=== PATIENT | female | born 1950 | race African-American/Black ===

== ENCOUNTER 2017-04-27 17:34 | Emergency (ER) | payer OTHER, MEDICAID ==
[~2017-04-27] VITALS: Ht 165.1 cm; Wt 53.3 kg
[~2017-04-27 17:34] MED LIST: AMLO10TA PO; BENA20TA4 PO; CEPH250C16 PO; CLON0.2T43 PO; DOCU-67 PO; FAMO-90 PO; LINA5TAB PO; LORA10OD3 PO; SITA100T8 PO
[2017-04-27 17:56] VITALS: BP 145/73
--- NOTE | 2017-04-27 20:12 | NUR ---
PT TAKEN TO BED 6
--- NOTE | 2017-04-27 20:27 | NUR ---
66Y F c/o bilateral ankle pain with subjective edema x 2 wks---denies injury, ambulatory with steady gait PT DENIES ANY N/V/D,SOB,CP AT THE MOMENT. PT IS AAOX4, BREATHING IS UNLABORED AND CLEAT BILAT. hx---cva (no obvious deficits), htn, dm, arthritis, hyperlipidemia, rx---clonidine, benazepril, doc-q-lace, famotidine, amlodipine, tradjenta, claritine
--- NOTE | 2017-04-27 20:40 | NUR ---
X-Ray at bedside.
--- NOTE | 2017-04-27 20:42 | NUR ---
Bree barger in [facility] - 04/27/17 at [address] Paez evaluating patient at bedside.
--- NOTE | 2017-04-27 21:02 | NUR ---
Dr. Paez evaluating patient at bedside.
[2017-04-27 21:03] LABS: BASOPHILS # (AUTO) 0.3 K/uL (0.00-0.22); BASOPHILS % (AUTO) 2.9 % (0.0-2.0); EOSINOPHILS # (AUTO) 0.3 K/uL (0-0.4); EOSINOPHILS % (AUTO) 3.2 % (0.0-4.0); HEMATOCRIT 36.9 % (36-48); HEMOGLOBIN 12.1 g/dL (12.0-16.0); LYMPHOCYTES # (AUTO) 3.5 K/uL (2.5-16.5); LYMPHOCYTES % (AUTO) 36.1 % (20.5-51.1); MEAN CORPUSCULAR HEMOGLOBIN 27 pg (27-31); MEAN CORPUSCULAR HGB CONC 33 g/dL (33-37); MEAN CORPUSCULAR VOLUME 82 fL (80-94); MONOCYTES % (AUTO) 10.4 % (1.7-9.3); NEUTROPHILS # (AUTO) 4.7 K/uL (1.8-7.7); NEUTROPHILS % (AUTO) 47.4 % (42.2-75.2); PLATELET COUNT (AUTO) 216 K/uL (140-450); RED CELL DISTRIBUTION WIDTH 12.8 % (11.6-13.7); WHITE BLOOD COUNT (AUTO) 9.8 K/uL (4.8-10.8)
[2017-04-27 21:18] LABS: ANION GAP 11.3 (8-16); CALCIUM 9.1 mg/dL (8.5-10.1); CARBON DIOXIDE 28.6 mmol/L (21-32); CREATININE 1.1 mg/dL (0.6-1.3); POTASSIUM 3.9 mmol/L (3.5-5.1)
[2017-04-27 21:21] LABS: APPEARANCE,URINE CLEAR (CLEAR); BILIRUBIN,URINE NEGATIVE (NEGATIVE); BLOOD, URINE TRACE-I (NEGATIVE); COLOR,URINE YELLOW (YELLOW); LEUKOCYTE ESTERASE ,URINE TRACE (NEGATIVE); NITRITE, URINE NEGATIVE (NEGATIVE); PH,URINE 5.5 (5.0-9.0); PROTEIN,URINE NEGATIVE (NEGATIVE); UGLUCOSE NEGATIVE (NEGATIVE); UROBILINOGEN,URINE 0.2 EU/dL (0.2 - 1)
[2017-04-27 21:24] LABS: ALBUMIN 4.1 g/dL (3.4-5.0); TOTAL BILIRUBIN 0.2 mg/dL (0.0-1.0); TOTAL PROTEIN, SERUM 8.4 g/dL (6.4-8.2)
[2017-04-27 21:28] LABS: BACTERIA,URINE RARE /HPF (None Seen); RBC,URINE 0-5 /HPF (0-5); SQUAMOUS EPITHELIAL CELL,UR 0-5 /LPF (0-3 (FEW)); WBC,URINE 0-5 /HPF (0-5)
--- NOTE | 2017-04-27 22:11 | NUR ---
Patient discharged with v/s stable. Written and verbal after care instructions given and explained. Patient verbalized understanding. Ambulatory with steady gait. All questions addressed prior to discharge. Advised to follow up with PMD.
[2017-04-27 22:18] VITALS: BP 119/72
== END 2017-04-27 22:17 | disposition home or self-care (01) ==
LOC: MED 17:34
DX: R60.9 Edema, unspecified (principal); E86.0 Dehydration; E11.9 Type 2 diabetes mellitus without complications; I10 Essential (primary) hypertension; E78.5 Hyperlipidemia, unspecified; M19.90 Unspecified osteoarthritis, unspecified site; Z96.641 Presence of right artificial hip joint; Z85.22 Personal history of malignant neoplasm of nasal cavities, middle ear, and accessory sinuses; Z86.73 Personal history of transient ischemic attack (TIA), and cerebral infarction without residual deficits; Z88.0 Allergy status to penicillin; Z88.1 Allergy status to other antibiotic agents
CPT/HCPCS: 36415; 71010; 80053; 81001; 83880; 84443; 84484; 85025; 93005; 99285; Q0092

== ENCOUNTER 2017-12-20 22:21 | Emergency (ER) | payer OTHER, MEDICAID ==
[~2017-12-20] VITALS: Ht 170.2 cm; Wt 54.4 kg
[~2017-12-20 22:21] MED LIST changes: -CEPH250C16 PO; +DOCU-299 PO; -DOCU-67 PO; -SITA100T8 PO
[2017-12-20 22:35] VITALS: BP 137/88
--- NOTE | 2017-12-20 22:40 | NUR ---
Pt presents to ED with 3+ lip and right cheek edema. Pt states no SOB or dyspnea. Lungs are clear in all lobes to auscletation. Pt sates she woke up at 12pm on 12/20/17 with the edema in which it has become worse over the past 11 hrs. VSS. ER MD aware. Continue to monitor.
--- NOTE | 2017-12-20 22:40 | NUR ---
PT.AMBULATED TO ER BED 11, MADE AWARE
--- NOTE | 2017-12-20 22:43 | NUR ---
Patient being evaluated by at bedside.
[2017-12-20] MEDS: NACL 0.9% 1,000 ML IV ONE (23:00)
[2017-12-20] MEDS: methylPREDNISolone SS 125 MG/2 ML VIAL IVP ONE (23:01)
[2017-12-20] MEDS: diphenhydrAMINE 50 MG/ML VIAL IVP ONE (23:02)
[2017-12-21 02:00] VITALS: BP 137/88
--- NOTE | 2017-12-21 02:00 | NUR ---
Patient discharged with v/s stable without SOB or dyspnea. Written and verbal after care instructions given and explained. Patient alert, oriented and verbalized understanding of instructions. Ambulatory with steady gait. All questions addressed prior to discharge. ID band removed. Patient advised to follow up with PMD. Rx of Hydralazine, Prednisone, and Benadryl given. Patient educated on indication of medication including possible reaction and side effects. Opportunity to ask questions provided and answered.
== END 2017-12-21 02:00 | disposition home or self-care (01) ==
LOC: MED 22:21
DX: T78.3XXA Angioneurotic edema, initial encounter (principal); T88.7XXA Unspecified adverse effect of drug or medicament, initial encounter; T46.4X5A Adverse effect of angiotensin-converting-enzyme inhibitors, initial encounter; Z86.73 Personal history of transient ischemic attack (TIA), and cerebral infarction without residual deficits; E11.9 Type 2 diabetes mellitus without complications; I10 Essential (primary) hypertension; Z85.22 Personal history of malignant neoplasm of nasal cavities, middle ear, and accessory sinuses; Z88.0 Allergy status to penicillin; Z88.1 Allergy status to other antibiotic agents; Z79.899 Other long term (current) drug therapy
CPT/HCPCS: 82948; 96361; 96374; 96375; 99285; J1200; J2930

== ENCOUNTER 2017-12-21 17:49 | Emergency (ER) | payer OTHER, MEDICAID ==
[~2017-12-21] VITALS: Ht 165.1 cm; Wt 54.6 kg
[2017-12-21 18:41] VITALS: BP 146/77
--- NOTE | 2017-12-21 19:00 | NUR ---
PATIENT PRESENTS TO ED WITH C/O her blood sugar has been over 300 all day today, denies polyuria, polydipsia, or polyphagia seen yesterday in our er for ANGIOEDEMA, pt had been on benazepril, hx---Hx Cancer (Maxillary sinus cancer), Hx Cerebrovascular Accide (x2), Hx Diabetes, Hx Hypertension, DENIES PAIN, VSS; ER MD MADE AWARE OF PT STATUS.
--- NOTE | 2017-12-21 20:11 | NUR ---
Bree barger in ED - 12/21/17 at [address] Rose evaluating patient.
--- NOTE | 2017-12-21 20:11 | NUR ---
Patient being evaluated by physician at bedside.
[2017-12-21 20:27] VITALS: BP 136/81
== END 2017-12-21 20:26 | disposition home or self-care (01) ==
LOC: MED 17:49
DX: E11.65 Type 2 diabetes mellitus with hyperglycemia (principal); Z86.73 Personal history of transient ischemic attack (TIA), and cerebral infarction without residual deficits; E11.9 Type 2 diabetes mellitus without complications; I10 Essential (primary) hypertension; Z79.899 Other long term (current) drug therapy; Z88.0 Allergy status to penicillin
CPT/HCPCS: 82948; 99283

== ENCOUNTER 2020-07-04 14:29 | Emergency (ER) | payer MEDICAID, OTHER ==
[~2020-07-04] VITALS: Ht 170.2 cm; Wt 54.4 kg
[~2020-07-04 14:29] MED LIST changes: +BENA20TA11 PO; -BENA20TA4 PO
[2020-07-04 14:33] VITALS: BP 145/75
--- NOTE | 2020-07-04 14:40 | NUR ---
PT C/O BLOATING/CONSTIPATION X2 DAYS, DENIES ABD PAIN, N/V. PATIENT IS TAKING Polyethylene glycol PRESCRIBED BY HER MD. LAST BM WAS YESTERDAY, BUT PATIENT STATES IT WAS PEBBLE-LIKE.
[2020-07-04] MEDS ORDERED: NACL 0.9% 1,000 ML IV SCH (14:41)
--- NOTE | 2020-07-04 14:51 | NUR ---
PER DR GOULD ALL ORDERS CANCELLED, PRIMARY RN NOTIFIED.
[2020-07-04 14:59] VITALS: BP 135/71
--- NOTE | 2020-07-04 14:59 | NUR ---
Patient discharged with v/s stable. Written and verbal after care instructions given and explained. Patient alert, oriented and verbalized understanding of instructions. Ambulatory with steady gait. All questions addressed prior to discharge. ID band removed. Patient advised to follow up with PMD. Rx of MiraLax and Magnesuym Citrate given. Patient educated on indication of medication including possible reaction and side effects. Opportunity to ask questions provided and answered.
== END 2020-07-04 14:59 | disposition home or self-care (01) ==
LOC: MED 14:29
DX: K59.00 Constipation, unspecified (principal); E11.9 Type 2 diabetes mellitus without complications; I10 Essential (primary) hypertension; Z79.899 Other long term (current) drug therapy; Z88.0 Allergy status to penicillin; Z88.1 Allergy status to other antibiotic agents; Z86.73 Personal history of transient ischemic attack (TIA), and cerebral infarction without residual deficits; Z85.22 Personal history of malignant neoplasm of nasal cavities, middle ear, and accessory sinuses
CPT/HCPCS: 99282

== ENCOUNTER 2020-10-10 13:39 | Emergency (ER) | payer OTHER, MEDICAID ==
[~2020-10-10] VITALS: Ht 162.6 cm; Wt 54.4 kg
[2020-10-10 13:47] VITALS: BP 139/74
--- NOTE | 2020-10-10 14:42 | NUR ---
PT UNABLE TO URINATE AT THIS TIME
--- NOTE | 2020-10-10 14:42 | NUR ---
PT TOSHIAID SWABBED AND WALKED TO LAB
--- NOTE | 2020-10-10 14:43 | NUR ---
70 Y/O FEMALE PRESENTS WITH GEN WEAKNESS SINCE MIGUELINA, PT DENIES ANY SOB OR BODY ACHES, PT STATES "I JUST FEEL WEAK". AAOX4. AMBULATORY WITH STEADY GAIT. DENIES N/V/D. CAP REFILL <3. RESP EVEN AND UNLABORED.
[2020-10-10 15:07] LABS: BASOPHILS % (AUTO) 0.2 % (0.0-2.0); EOSINOPHILS % (AUTO) 0.1 % (0.0-4.0); HEMATOCRIT 32.5 % (36-48); HEMOGLOBIN 10.6 g/dL (12.0-16.0); LYMPHOCYTES # (AUTO) 0.9 K/uL (2.5-16.5); LYMPHOCYTES % (AUTO) 10.2 % (20.5-51.1); MEAN CORPUSCULAR HEMOGLOBIN 26 pg (27-31); MEAN CORPUSCULAR HGB CONC 33 g/dL (33-37); MEAN CORPUSCULAR VOLUME 81.1 fL (80-94); MONOCYTES % (AUTO) 11.6 % (1.7-9.3); NEUTROPHILS # (AUTO) 6.8 K/uL (1.8-7.7); NEUTROPHILS % (AUTO) 77.9 % (42.2-75.2); PLATELET COUNT (AUTO) 297 K/uL (140-450); RED BLOOD CELL COUNT(AUTO) 4.02 MIL/uL (4.20-5.40); RED CELL DISTRIBUTION WIDTH 13.7 % (11.6-13.7); WHITE BLOOD COUNT (AUTO) 8.7 K/uL (4.8-10.8)
[2020-10-10 15:28] LABS: ALBUMIN 3.5 g/dL (3.4-5.0); CARBON DIOXIDE 25.4 mmol/L (21-32); CREATININE 1.1 mg/dL (0.6-1.3); POTASSIUM 4.4 mmol/L (3.5-5.1); TOTAL BILIRUBIN 0.4 mg/dL (0.0-1.0)
--- NOTE | 2020-10-10 15:45 | NUR ---
Received critical lab, COVID +. Dr. Higgins made aware.
[2020-10-10 16:01] VITALS: BP 139/74
== END 2020-10-10 16:01 | disposition home or self-care (01) ==
LOC: MED 13:39
DX: U07.1 COVID-19 (principal)
CPT/HCPCS: 36415; 71045; 80053; 85025; 93005; 99285

== ENCOUNTER 2021-02-13 11:16 | Emergency (ER) | payer OTHER, MEDICAID ==
[~2021-02-13] VITALS: Ht 170.2 cm; Wt 48.1 kg
[~2021-02-13 11:16] MED LIST changes: +CLON-1170 PO; -CLON0.2T43 PO
[2021-02-13 11:26] VITALS: BP 167/93
--- NOTE | 2021-02-13 11:32 | NUR ---
Patient ambulated to bed 04 with steady/even gait.
--- NOTE | 2021-02-13 11:35 | NUR ---
RN is evaluating patient at bedside.
--- NOTE | 2021-02-13 12:02 | NUR ---
PT STATES THAT SHE HAD LEFT EYE SURGERY IN THE PAST, PUPIL IS ASYMETRICAL LEFT SIDE NORMAL FOR PT
--- NOTE | 2021-02-13 12:56 | NUR ---
Dr. Hinson is evaluating the patient at bedside.
[2021-02-13 13:12] VITALS: BP 157/76
== END 2021-02-13 13:00 | disposition home or self-care (01) ==
LOC: MED 11:16
DX: T46.5X1A Poisoning by other antihypertensive drugs, accidental (unintentional), initial encounter (principal); R20.2 Paresthesia of skin; I10 Essential (primary) hypertension; Y92.89 Other specified places as the place of occurrence of the external cause
CPT/HCPCS: 99281

== ENCOUNTER 2021-06-10 13:58 | Emergency (ER) | payer OTHER, MEDICAID ==
[~2021-06-10] VITALS: Ht 170.2 cm; Wt 48.1 kg
[2021-06-10 14:12] VITALS: BP 141/66
--- NOTE | 2021-06-10 14:24 | NUR ---
Patient ambulated to bed 12
--- NOTE | 2021-06-10 14:30 | NUR ---
Patient is a 70 y/o female c/o constipation x1 week, last bowel movement on 06/08/21. Per patient, has been taking OTC psyllium, magnesium, and OTC cascara supplement. Patient denies CP, SOB, abdominal pain, lightheaded or dizziness, dysuria, fever, chills, URI symptoms, or recent travel. Rx: amlodipine, clonidine PMH: HTN, DM, RIGHT HIP SURGERY Allergies: PCN, tetracycline
--- NOTE | 2021-06-10 15:54 | NUR ---
Patient taken to CT via wheelchair by plant health care technician.
--- NOTE | 2021-06-10 16:09 | NUR ---
Patient brought back from CT by tech via wheelchair.
--- NOTE | 2021-06-10 17:04 | NUR ---
Patient ambulated to the restroom with a steady gait.
--- NOTE | 2021-06-10 17:18 | NUR ---
Dr. Marks at the bedside re-evaluating patient.
[2021-06-10] MEDS ORDERED: MIRABULK PO (17:41)
[2021-06-10 17:51] VITALS: BP 141/66
--- NOTE | 2021-06-10 17:51 | NUR ---
Patient discharged with v/s stable. Written and verbal after care instructions given and explained. Patient alert, oriented and verbalized understanding of instructions. Ambulatory with steady gait. All questions addressed prior to discharge. ID band removed. Patient advised to follow up with PMD. Rx of polyethylene glycol given. Patient educated on indication of medication including possible reaction and side effects. Opportunity to ask questions provided and answered.
== END 2021-06-10 17:51 | disposition home or self-care (01) ==
LOC: MED 13:58
DX: R14.0 Abdominal distension (gaseous) (principal); K59.00 Constipation, unspecified; E11.9 Type 2 diabetes mellitus without complications; I10 Essential (primary) hypertension; Z88.0 Allergy status to penicillin; Z88.1 Allergy status to other antibiotic agents; Z79.899 Other long term (current) drug therapy; Z85.22 Personal history of malignant neoplasm of nasal cavities, middle ear, and accessory sinuses
CPT/HCPCS: 99284

== ENCOUNTER 2021-11-27 12:15 | Emergency (ER) | payer OTHER, MEDICAID ==
[~2021-11-27] VITALS: Ht 170.2 cm; Wt 46.5 kg
[~2021-11-27 12:15] MED LIST changes: -BENA20TA11 PO; +BENA20TA89 PO; +MIRABULK PO
[2021-11-27 12:28] VITALS: BP 140/74
--- NOTE | 2021-11-27 12:38 | NUR ---
PT AMBULATED TO ER BED 6 WITH A STEADY GAIT.
--- NOTE | 2021-11-27 12:40 | NUR ---
71 y/o Female BIB family for a c/o constipation and bloating x 2 days. Abd is soft/non-tender. +BS x4. passing flatus at this time. Pt states that she takes [place] for her chronic pain. Denies N/V/D/CP. Pmhx: CVA, Maxillary sinus CA, DM, HTN Home meds: Citric mag, miralax, [id number], tradjanta 5mg, amlodipine 10mg. clonidine 0.2, omeprazole 20 mg. Allergies: PCN, tetracycline
[2021-11-27] MEDS: SENNA 8.6 MG TAB PO SCH (13:05)
[2021-11-27] MEDS: DOCUSATE SODIUM 100 MG GELCAP PO SCH (13:05)
--- NOTE | 2021-11-27 13:14 | NUR ---
Radiology at bedside for XRAY
[2021-11-27] MEDS ORDERED: DOCU1TAB73 PO (13:31)
--- NOTE | 2021-11-27 13:45 | NUR ---
Patient discharged with v/s stable. Written and verbal after care instructions given about constipation and explained. Patient alert, oriented and verbalized understanding of instructions. Ambulatory with steady gait. All questions addressed prior to discharge. ID band removed. Patient advised to follow up with PMD. Rx of sennosides/docusate sodium given. Opportunity to ask questions provided and answered.
[2021-11-27 13:51] VITALS: BP 126/80
--- NOTE | 2021-11-27 14:03 | NUR ---
The patient's care was reviewed and supervised by Yamileth Akhtar RN.
== END 2021-11-27 13:49 | disposition home or self-care (01) ==
LOC: MED 12:15
DX: K59.00 Constipation, unspecified (principal); E11.9 Type 2 diabetes mellitus without complications; I10 Essential (primary) hypertension; Z86.73 Personal history of transient ischemic attack (TIA), and cerebral infarction without residual deficits; Z88.0 Allergy status to penicillin; Z88.1 Allergy status to other antibiotic agents; Z79.899 Other long term (current) drug therapy
CPT/HCPCS: 74018; 82948; 99284; Q0092

== ENCOUNTER 2022-02-05 15:25 | Emergency (ER) | payer OTHER, MEDICAID ==
[~2022-02-05] VITALS: Ht 170.2 cm; Wt 46.9 kg
[~2022-02-05 15:25] MED LIST changes: +DOCU1TAB73 PO
[2022-02-05 15:39] VITALS: BP 137/60
[2022-02-05] MEDS ORDERED: MIRABULK PO (16:37)
[2022-02-05] MEDS ORDERED: CIPR500T4 PO (16:37)
--- NOTE | 2022-02-05 16:50 | NUR ---
no nursing interventions done at this time
--- NOTE | 2022-02-05 16:52 | NUR ---
Patient discharged with v/s stable. Written and verbal after care instructions given and explained. Patient alert, oriented and verbalized understanding of instructions. Ambulatory with steady gait. All questions addressed prior to discharge. ID band removed. Patient advised to follow up with PMD. Rx of CIPROFLOXACIN AND MIRALAX given. Opportunity to ask questions provided and answered.
[2022-02-05 16:53] VITALS: BP 137/60
--- NOTE | 2022-02-05 16:55 | NUR ---
The patient's care was reviewed and supervised by Bessy [place], RN, RN.
== END 2022-02-05 16:53 | disposition home or self-care (01) ==
LOC: MED 15:25
DX: N39.0 Urinary tract infection, site not specified (principal); K59.00 Constipation, unspecified; E11.9 Type 2 diabetes mellitus without complications; I10 Essential (primary) hypertension; Z79.899 Other long term (current) drug therapy; Z86.73 Personal history of transient ischemic attack (TIA), and cerebral infarction without residual deficits; Z85.22 Personal history of malignant neoplasm of nasal cavities, middle ear, and accessory sinuses; Z88.0 Allergy status to penicillin; Z88.1 Allergy status to other antibiotic agents
CPT/HCPCS: 81002; 99283

== ENCOUNTER 2022-05-08 12:23 | Emergency (ER) | payer OTHER, MEDICAID ==
[~2022-05-08] VITALS: Ht 170.2 cm; Wt 49.9 kg
[~2022-05-08 12:23] MED LIST changes: +CIPR500T4 PO
[2022-05-08 12:28] VITALS: BP 170/72
--- NOTE | 2022-05-08 12:33 | NUR ---
PT W/C ASSISTED TO ER BED 1
--- NOTE | 2022-05-08 12:37 | NUR ---
PT WC ASSISTED TO BATHROOM
[2022-05-08] MEDS ORDERED: NACL 0.9% 1,000 ML IV ONE (13:40)
[2022-05-08 14:08] LABS: BASOPHILS % (AUTO) 0.9 % (0.0-2.0); EOSINOPHILS % (AUTO) 0.4 % (0.0-4.0); HEMOGLOBIN 11.5 g/dL (12.0-16.0); LYMPHOCYTES # (AUTO) 0.9 K/uL (2.5-16.5); LYMPHOCYTES % (AUTO) 20.4 % (20.5-51.1); MEAN CORPUSCULAR HEMOGLOBIN 27 pg (27-31); MEAN CORPUSCULAR HGB CONC 34 g/dL (33-37); MEAN CORPUSCULAR VOLUME 80.3 fL (80-94); MONOCYTES # (AUTO) 0.4 K/uL (0.8-1.0); MONOCYTES % (AUTO) 8.6 % (1.7-9.3); NEUTROPHILS # (AUTO) 3.1 K/uL (1.8-7.7); NEUTROPHILS % (AUTO) 69.7 % (42.2-75.2); PLATELET COUNT (AUTO) 233 K/uL (140-450); RED BLOOD CELL COUNT(AUTO) 4.24 MIL/uL (4.20-5.40); RED CELL DISTRIBUTION WIDTH 13.3 % (11.6-13.7); WHITE BLOOD COUNT (AUTO) 4.5 K/uL (4.8-10.8)
[2022-05-08 14:21] LABS: ALBUMIN 4.1 g/dL (3.4-5.0); ANION GAP 12.3 (8-16); ASPARTATE AMINOTRANSFERASE 20 U/L (15-37); CARBON DIOXIDE 26.4 mmol/L (21-32); CHLORIDE 103 mmol/L (98-107); CREATININE 0.9 mg/dL (0.6-1.3); GLUCOSE 167 mg/dL (74-106); POTASSIUM 3.7 mmol/L (3.5-5.1); SODIUM SERUM 138 mmol/L (136-145); TOTAL BILIRUBIN 0.2 mg/dL (0.0-1.0); UREA NITROGEN, BLOOD 14 mg/dL (7-18)
--- NOTE | 2022-05-08 14:21 | NUR ---
XRAY AT BEDSIDE
--- NOTE | 2022-05-08 14:21 | NUR ---
22G IV CATH PLACED IN L AC. LABS OBTAINED AND SENT TO LAB
--- NOTE | 2022-05-08 14:37 | NUR ---
71YR OLD FEMALE BIB SELF C/O DIZZINESS AND CONSTIPATION X1DAY. DENIES CP OR SOB. 0/10 PAIN. PT STATES FEELING DIZZY WHILE IN THE RESTROOM TODAY. HAS BEEN CONSTIPATED FOR 2 DAYS. DENIES ABD PAIN . PT ON BEDSIDE MONITOR. HOB ELEVATED. SIDE RAILS UPX2. BED AT LOWEST POSITION. PT IS A&OX4. SKIN INTACT. RESP EVEN AND UNLABORED. PCN DM HTN STROKE
--- NOTE | 2022-05-08 14:41 | NUR ---
BEDSIDE COMMONDE AT BED SIDE.
[2022-05-08 16:50] LABS: APPEARANCE,URINE CLEAR (CLEAR); BILIRUBIN,URINE NEGATIVE (NEGATIVE); BLOOD, URINE TRACE-I (NEGATIVE); COLOR,URINE YELLOW (YELLOW); LEUKOCYTE ESTERASE ,URINE NEGATIVE (NEGATIVE); NITRITE, URINE NEGATIVE (NEGATIVE); PH,URINE 7.5 (5.0-9.0); UGLUCOSE NEGATIVE (NEGATIVE)
[2022-05-08] MEDS ORDERED: ONDA-188 PO (17:26)
[2022-05-08 17:27] LABS: RBC,URINE NONE SEEN /HPF (0-5); WBC,URINE NONE SEEN /HPF (0-5); YEAST,URINE None Seen /HPF (None Seen)
[2022-05-08 17:28] LABS: TRICHOMONAS,URINE None Seen /HPF (None Seen); URIC ACID CRYSTALS,URINE 0-10 /HPF (None Seen)
[2022-05-08 17:52] VITALS: BP 161/68
== END 2022-05-08 17:41 | disposition home or self-care (01) ==
LOC: MED 12:23
DX: R53.1 Weakness (principal); R42 Dizziness and giddiness; E11.9 Type 2 diabetes mellitus without complications; I10 Essential (primary) hypertension; Z85.22 Personal history of malignant neoplasm of nasal cavities, middle ear, and accessory sinuses; Z86.73 Personal history of transient ischemic attack (TIA), and cerebral infarction without residual deficits; Z88.0 Allergy status to penicillin; Z88.1 Allergy status to other antibiotic agents; Z79.899 Other long term (current) drug therapy
CPT/HCPCS: 36415; 71045; 80053; 81001; 83880; 84484; 85025; 93005; 96360; 99285; J7030

== ENCOUNTER 2023-03-30 12:58 | Emergency (ER) | payer OTHER, MEDICAID ==
[~2023-03-30] VITALS: Ht 165.1 cm; Wt 56.2 kg
[~2023-03-30 12:58] MED LIST changes: +ONDA-188 PO
[2023-03-30 13:10] VITALS: BP 142/90; PULSE 72; RESP 17; TEMP 97.4; O2SAT 96
[2023-03-30] MEDS ORDERED: SODIUM PHOSPHATE 118 ML ENEM RC ONE (14:20)
[2023-03-30] MEDS ORDERED: MIRABULK PO (16:30)
== END 2023-03-30 17:24 | disposition home or self-care (01) ==
LOC: MED 12:58
DX: K59.00 Constipation, unspecified (principal); E11.9 Type 2 diabetes mellitus without complications; I10 Essential (primary) hypertension; E78.00 Pure hypercholesterolemia, unspecified; Z86.73 Personal history of transient ischemic attack (TIA), and cerebral infarction without residual deficits; Z85.22 Personal history of malignant neoplasm of nasal cavities, middle ear, and accessory sinuses; Z79.899 Other long term (current) drug therapy; Z79.2 Long term (current) use of antibiotics; Z88.0 Allergy status to penicillin; Z88.1 Allergy status to other antibiotic agents
CPT/HCPCS: 74022; 99284

== ENCOUNTER 2023-04-12 12:28 | Emergency (ER) | payer OTHER, MEDICAID ==
[~2023-04-12] VITALS: Ht 167.6 cm; Wt 68.0 kg
[2023-04-12 12:47] VITALS: BP 150/73; PULSE 93; RESP 20; TEMP 97; O2SAT 98
== END 2023-04-12 13:43 | disposition home or self-care (01) ==
LOC: MED 12:28
DX: R19.7 Diarrhea, unspecified (principal); I10 Essential (primary) hypertension; E11.9 Type 2 diabetes mellitus without complications; Z86.73 Personal history of transient ischemic attack (TIA), and cerebral infarction without residual deficits; Z79.4 Long term (current) use of insulin; Z79.899 Other long term (current) drug therapy; Z88.0 Allergy status to penicillin; Z88.8 Allergy status to other drugs, medicaments and biological substances
CPT/HCPCS: 99282

== ENCOUNTER 2023-04-21 20:25 | Emergency (ER) | payer OTHER, MEDICAID ==
[~2023-04-21] VITALS: Ht 170.2 cm; Wt 40.8 kg
[2023-04-21 20:49] VITALS: BP 140/70; PULSE 80; RESP 16; TEMP 97.8; O2SAT 100
--- NOTE | 2023-04-21 20:57 | NUR ---
TO LOBBY FOLLOWING TRIAGE AFTER OBTAINING UA
--- NOTE | 2023-04-21 21:09 | NUR ---
URINE GIVEN TO LAB.
[2023-04-21 21:27] LABS: BASOPHILS # (AUTO) 0.1 K/uL (0.00-0.22); EOSINOPHILS # (AUTO) 0.1 K/uL (0-0.4); EOSINOPHILS % (AUTO) 0.9 % (0.0-4.0); HEMATOCRIT 31.9 % (36-48); HEMOGLOBIN 11.1 g/dL (12.0-16.0); LYMPHOCYTES % (AUTO) 33.3 % (20.5-51.1); MEAN CORPUSCULAR HEMOGLOBIN 28 pg (27-31); MEAN CORPUSCULAR HGB CONC 35 g/dL (33-37); MEAN CORPUSCULAR VOLUME 79.3 fL (80-94); MONOCYTES # (AUTO) 0.8 K/uL (0.8-1.0); MONOCYTES % (AUTO) 13.7 % (1.7-9.3); NEUTROPHILS # (AUTO) 3.1 K/uL (1.8-7.7); NEUTROPHILS % (AUTO) 51.1 % (42.2-75.2); PLATELET COUNT (AUTO) 220 K/uL (140-450); RED BLOOD CELL COUNT(AUTO) 4.02 MIL/uL (4.20-5.40); RED CELL DISTRIBUTION WIDTH 13.1 % (11.6-13.7)
[2023-04-21 21:59] LABS: ALBUMIN 4.3 g/dL (3.4-5.0); ANION GAP 13.9 (8-16); ASPARTATE AMINOTRANSFERASE 25 U/L (15-37); CHLORIDE 95 mmol/L (98-107); CREATININE 0.9 mg/dL (0.6-1.3); GLUCOSE 122 mg/dL (74-106); LIPASE 13 U/L (73-393); SODIUM SERUM 130 mmol/L (136-145); TOTAL BILIRUBIN 0.4 mg/dL (0.0-1.0); UREA NITROGEN, BLOOD 8 mg/dL (7-18)
[2023-04-21 22:04] LABS: POTASSIUM 2.9 mmol/L (3.5-5.1)
--- NOTE | 2023-04-21 22:04 | NUR ---
pt to bed 09
[2023-04-21] MEDS ORDERED: NACL 0.9% 1,000 ML IV ONE (22:10)
[2023-04-21] MEDS ORDERED: POTASSIUM CHLORIDE 10 MEQ TABER PO ONE ×2 (22:10→22:41)
[2023-04-21] MEDS ORDERED: KCL 20 MEQ IN 100 mL PREMIX 200 ML IV ONE (22:10)
[2023-04-21] MEDS ORDERED: POLYETHYLENE GLYCOL 17 GM/PKT PO ONE (22:40)
[2023-04-21] MEDS ORDERED: DOCUSATE SODIUM 100 MG GELCAP PO SCH (22:40)
[2023-04-21] MEDS ORDERED: SODIUM PHOSPHATE 118 ML ENEM RC ONE (22:40)
[2023-04-21] MEDS ORDERED: CRUSHER, PILL MC ONE (22:44)
--- NOTE | 2023-04-22 | NUR ---
Pt assisted to commode and had medium bowel movement. ERMD notified
--- NOTE | 2023-04-22 00:40 | NUR ---
Per pt, c/o feeling is unable to empty bowels. Denies pain at this time. ERMD was made aware and placed order for CT.
--- NOTE | 2023-04-22 00:42 | NUR ---
Pt was taken to CT
--- NOTE | 2023-04-22 01:40 | NUR ---
Pt was assisted to commmode and urinated.
--- NOTE | 2023-04-22 03:25 | NUR ---
Pt awake and resting comfortably at this time. No c/o pain or discomfort.
[2023-04-22] MEDS ORDERED: NA P135N RC (04:41)
[2023-04-22] MEDS ORDERED: POTA10TA70 PO (04:41)
[2023-04-22] MEDS ORDERED: PSYL0.4C2 PO (04:41)
[2023-04-22] MEDS ORDERED: DOCU-299 PO (04:41)
[2023-04-22 05:30] VITALS: BP 150/77; PULSE 86; RESP 16; TEMP 97.8; O2SAT 100
--- NOTE | 2023-04-22 05:33 | NUR ---
Patient discharged. Written and verbal after care instructions given and explained. New rx colace, fleet enema, potassium chloride, and metamucil. Patient verbalized understanding. Ambulatory. All questions addressed prior to discharge. Advised to follow up with PMD.
== END 2023-04-22 05:30 | disposition home or self-care (01) ==
LOC: MED 20:25
DX: K59.00 Constipation, unspecified (principal); E87.6 Hypokalemia; D50.9 Iron deficiency anemia, unspecified; E86.0 Dehydration; E11.9 Type 2 diabetes mellitus without complications; I10 Essential (primary) hypertension; Z85.22 Personal history of malignant neoplasm of nasal cavities, middle ear, and accessory sinuses; Z86.73 Personal history of transient ischemic attack (TIA), and cerebral infarction without residual deficits; Z88.0 Allergy status to penicillin; Z88.1 Allergy status to other antibiotic agents; Z79.899 Other long term (current) drug therapy
CPT/HCPCS: 36415; 74022; 74176; 80053; 83690; 85025; 96365; 96366; 99285; J3480; J7030; Q0092

== ENCOUNTER 2023-09-12 00:05 | Emergency (ER) | payer OTHER, MEDICAID ==
[~2023-09-12] VITALS: Ht 170.2 cm; Wt 44.9 kg
[~2023-09-12 00:05] MED LIST changes: +NA P135N RC; +POTA10TA70 PO; +PSYL0.4C2 PO
[2023-09-12 00:38] VITALS: BP 147/67; PULSE 82; RESP 20; TEMP 98; O2SAT 98
[2023-09-12] MEDS ORDERED: KETOROLAC 60 MG/2 ML VIAL IM ONE (01:30)
[2023-09-12] MEDS ORDERED: IBUP-1842 PO (03:24)
[2023-09-12 05:51] LABS: BASOPHILS # (AUTO) 0.1 K/uL (0.00-0.22); BASOPHILS % (AUTO) 0.8 % (0.0-2.0); EOSINOPHILS # (AUTO) 0.1 K/uL (0-0.4); EOSINOPHILS % (AUTO) 0.9 % (0.0-4.0); HEMOGLOBIN 11.8 g/dL (12.0-16.0); LYMPHOCYTES # (AUTO) 2.4 K/uL (2.5-16.5); LYMPHOCYTES % (AUTO) 38.9 % (20.5-51.1); MEAN CORPUSCULAR HEMOGLOBIN 28 pg (27-31); MEAN CORPUSCULAR HGB CONC 34 g/dL (33-37); MEAN CORPUSCULAR VOLUME 82.2 fL (80-94); MONOCYTES # (AUTO) 0.7 K/uL (0.8-1.0); MONOCYTES % (AUTO) 10.6 % (1.7-9.3); NEUTROPHILS % (AUTO) 48.8 % (42.2-75.2); PLATELET COUNT (AUTO) 230 K/uL (140-450); RED BLOOD CELL COUNT(AUTO) 4.25 MIL/uL (4.20-5.40); RED CELL DISTRIBUTION WIDTH 13.5 % (11.6-13.7); WHITE BLOOD COUNT (AUTO) 6.1 K/uL (4.8-10.8)
[2023-09-12 06:12] LABS: ALANINE AMINOTRANSFERASE 29 U/L (12-78); ALBUMIN 4.3 g/dL (3.4-5.0); ALKALINE PHOSPHATASE 86 U/L (50-136); ANION GAP 11.8 (8-16); ASPARTATE AMINOTRANSFERASE 20 U/L (15-37); CARBON DIOXIDE 28.8 mmol/L (21-32); CHLORIDE 104 mmol/L (98-107); CREATININE 0.9 mg/dL (0.6-1.3); GLUCOSE 160 mg/dL (74-106); POTASSIUM 3.6 mmol/L (3.5-5.1); SODIUM SERUM 141 mmol/L (136-145); TOTAL BILIRUBIN 0.3 mg/dL (0.0-1.0); UREA NITROGEN, BLOOD 14 mg/dL (7-18)
[2023-09-12 06:53] VITALS: BP 151/67; PULSE 81; RESP 22; TEMP 98.3; O2SAT 99
== END 2023-09-12 06:53 | disposition short-term general hospital (02) ==
LOC: MED 00:05
DX: I61.9 Nontraumatic intracerebral hemorrhage, unspecified (principal); E11.9 Type 2 diabetes mellitus without complications; I10 Essential (primary) hypertension; Z86.73 Personal history of transient ischemic attack (TIA), and cerebral infarction without residual deficits; Z98.890 Other specified postprocedural states; Z79.899 Other long term (current) drug therapy; Z79.1 Long term (current) use of non-steroidal anti-inflammatories (NSAID); Z88.0 Allergy status to penicillin; Z88.1 Allergy status to other antibiotic agents
CPT/HCPCS: 36415; 70450; 71045; 80053; 81002; 82948; 83880; 84484; 85025; 93005; 96372; 99285; J1885; Q0092

== ENCOUNTER 2024-01-30 11:47 | Emergency (ER) | payer OTHER, MEDICAID ==
[~2024-01-30] VITALS: Ht 170.2 cm; Wt 40.8 kg
[~2024-01-30 11:47] MED LIST changes: -DOCU1TAB73 PO; +IBUP-1842 PO; +SENN1TAB80 PO
[2024-01-30 12:12] VITALS: BP 116/65; PULSE 56; RESP 18; TEMP 97.1; O2SAT 100
[2024-01-30 15:14] LABS: BASOPHILS # (AUTO) 0.1 K/uL (0.00-0.22); BASOPHILS % (AUTO) 0.8 % (0.0-2.0); EOSINOPHILS # (AUTO) 0.2 K/uL (0-0.4); EOSINOPHILS % (AUTO) 2.2 % (0.0-4.0); HEMATOCRIT 36.2 % (36-48); HEMOGLOBIN 12.1 g/dL (12.0-16.0); LYMPHOCYTES # (AUTO) 3.6 K/uL (2.5-16.5); LYMPHOCYTES % (AUTO) 51.8 % (20.5-51.1); MEAN CORPUSCULAR HEMOGLOBIN 28 pg (27-31); MEAN CORPUSCULAR HGB CONC 34 g/dL (33-37); MEAN CORPUSCULAR VOLUME 82.7 fL (80-94); MONOCYTES # (AUTO) 0.6 K/uL (0.8-1.0); MONOCYTES % (AUTO) 8.6 % (1.7-9.3); NEUTROPHILS # (AUTO) 2.6 K/uL (1.8-7.7); NEUTROPHILS % (AUTO) 36.6 % (42.2-75.2); PLATELET COUNT (AUTO) 246 K/uL (140-450); RED BLOOD CELL COUNT(AUTO) 4.38 MIL/uL (4.20-5.40); RED CELL DISTRIBUTION WIDTH 13.8 % (11.6-13.7)
[2024-01-30 15:37] LABS: ALANINE AMINOTRANSFERASE 34 U/L (12-78); ALBUMIN 4.6 g/dL (3.4-5.0); ALKALINE PHOSPHATASE 101 U/L (50-136); ANION GAP 11.8 (8-16); ASPARTATE AMINOTRANSFERASE 26 U/L (15-37); CARBON DIOXIDE 32.7 mmol/L (21-32); CHLORIDE 101 mmol/L (98-107); GLUCOSE 116 mg/dL (74-106); LIPASE 9 U/L (16-77); POTASSIUM 4.5 mmol/L (3.5-5.1); SODIUM SERUM 141 mmol/L (136-145); TOTAL BILIRUBIN 0.2 mg/dL (0.0-1.0); TOTAL PROTEIN, SERUM 8.3 g/dL (6.4-8.2); UREA NITROGEN, BLOOD 13 mg/dL (7-18)
[2024-01-30] MEDS ORDERED: LACT-191 PO (17:04)
[2024-01-31] MEDS ORDERED: LACT-191 PO (12:13)
== END 2024-01-30 17:17 | disposition home or self-care (01) ==
LOC: MED 11:47
DX: R10.84 Generalized abdominal pain (principal); K59.00 Constipation, unspecified; I10 Essential (primary) hypertension; E11.9 Type 2 diabetes mellitus without complications; Z86.73 Personal history of transient ischemic attack (TIA), and cerebral infarction without residual deficits; Z88.0 Allergy status to penicillin; Z88.8 Allergy status to other drugs, medicaments and biological substances; Z79.899 Other long term (current) drug therapy; Z79.4 Long term (current) use of insulin
CPT/HCPCS: 36415; 74177; 80053; 83690; 85025; 99285; Q9967

== ENCOUNTER 2024-03-18 01:58 | Emergency (ER) | payer OTHER, MEDICAID ==
[~2024-03-18] VITALS: Ht 170.2 cm; Wt 45.4 kg
[~2024-03-18 01:58] MED LIST changes: +LACT-191 PO; +NA P133E2 RC; -NA P135N RC
[2024-03-18 02:08] VITALS: BP 156/79; PULSE 79; RESP 19; TEMP 98; O2SAT 99
[2024-03-18 02:22] VITALS: BP 156/79; PULSE 79; RESP 19; TEMP 98
[2024-03-18 02:48] LABS: BASOPHILS % (AUTO) 0.6 % (0.0-2.0); EOSINOPHILS # (AUTO) 0.1 K/uL (0-0.4); HEMATOCRIT 33.1 % (36-48); HEMOGLOBIN 11.2 g/dL (12.0-16.0); LYMPHOCYTES # (AUTO) 3.7 K/uL (2.5-16.5); LYMPHOCYTES % (AUTO) 53.9 % (20.5-51.1); MEAN CORPUSCULAR HEMOGLOBIN 28 pg (27-31); MEAN CORPUSCULAR HGB CONC 34 g/dL (33-37); MEAN CORPUSCULAR VOLUME 83.8 fL (80-94); MONOCYTES # (AUTO) 0.7 K/uL (0.8-1.0); MONOCYTES % (AUTO) 10.6 % (1.7-9.3); NEUTROPHILS # (AUTO) 2.3 K/uL (1.8-7.7); NEUTROPHILS % (AUTO) 32.9 % (42.2-75.2); PLATELET COUNT (AUTO) 214 K/uL (140-450); RED BLOOD CELL COUNT(AUTO) 3.95 MIL/uL (4.20-5.40); RED CELL DISTRIBUTION WIDTH 14.1 % (11.6-13.7); WHITE BLOOD COUNT (AUTO) 6.9 K/uL (4.8-10.8)
[2024-03-18 03:00] LABS: ANION GAP 12.3 (8-16); CALCIUM 9.7 mg/dL (8.5-10.1); CARBON DIOXIDE 30.6 mmol/L (21-32); CHLORIDE 101 mmol/L (98-107); CREATININE 1.1 mg/dL (0.6-1.3); GLUCOSE 145 mg/dL (74-106); POTASSIUM 3.9 mmol/L (3.5-5.1); SODIUM SERUM 140 mmol/L (136-145); UREA NITROGEN, BLOOD 18 mg/dL (7-18)
[2024-03-18 03:04] LABS: ALBUMIN 4.4 g/dL (3.4-5.0); BILIRUBIN,DIRECT 0.1 mg/dL (0.0-0.3); TOTAL BILIRUBIN 0.3 mg/dL (0.0-1.0); TOTAL PROTEIN, SERUM 7.9 g/dL (6.4-8.2)
[2024-03-18 03:06] LABS: APPEARANCE,URINE CLEAR (CLEAR); BILIRUBIN,URINE NEGATIVE (NEGATIVE); BLOOD, URINE NEGATIVE (NEGATIVE); COLOR,URINE YELLOW (YELLOW); LEUKOCYTE ESTERASE ,URINE NEGATIVE (NEGATIVE); NITRITE, URINE NEGATIVE (NEGATIVE); PROTEIN,URINE NEGATIVE (NEGATIVE); UGLUCOSE NEGATIVE (NEGATIVE); UROBILINOGEN,URINE 0.2 EU/dL (0.2 - 1)
[2024-03-18 03:30] VITALS: O2SAT 97
[2024-03-18] MEDS: ONDANSETRON 4 MG/2 ML VIAL IVP ONE (03:33)
[2024-03-18] MEDS: NACL 0.9% 1,000 ML IV SCH (03:33)
[2024-03-18] MEDS ORDERED: METO-485 PO (04:57)
[2024-03-18] MEDS ORDERED: DOCU-299 PO (04:57)
== END 2024-03-18 05:05 | disposition home or self-care (01) ==
LOC: MED 01:58
DX: A08.8 Other specified intestinal infections (principal); R10.84 Generalized abdominal pain; I10 Essential (primary) hypertension; E11.9 Type 2 diabetes mellitus without complications; Z86.73 Personal history of transient ischemic attack (TIA), and cerebral infarction without residual deficits; Z79.4 Long term (current) use of insulin; Z79.899 Other long term (current) drug therapy; Z88.0 Allergy status to penicillin; Z88.8 Allergy status to other drugs, medicaments and biological substances
CPT/HCPCS: 36415; 74176; 80048; 80076; 81003; 83690; 85025; 96360; 99284; J2405; J7030

== ENCOUNTER 2024-06-14 13:19 | Emergency (ER) | payer OTHER, MEDICAID ==
[~2024-06-14] VITALS: Ht 170.2 cm; Wt 44.9 kg
[~2024-06-14 13:19] MED LIST changes: +METO-485 PO
[2024-06-14 13:31] VITALS: BP 125/62; PULSE 78; RESP 15; TEMP 98.8; O2SAT 100
[2024-06-14 15:44] LABS: BASOPHILS # (AUTO) 0.1 K/uL (0.00-0.22); EOSINOPHILS # (AUTO) 0.1 K/uL (0-0.4); EOSINOPHILS % (AUTO) 1.8 % (0.0-4.0); HEMATOCRIT 33.7 % (36-48); LYMPHOCYTES # (AUTO) 2.8 K/uL (2.5-16.5); LYMPHOCYTES % (AUTO) 49.2 % (20.5-51.1); MEAN CORPUSCULAR HEMOGLOBIN 27 pg (27-31); MEAN CORPUSCULAR HGB CONC 33 g/dL (33-37); MEAN CORPUSCULAR VOLUME 84.1 fL (80-94); MONOCYTES # (AUTO) 0.5 K/uL (0.8-1.0); MONOCYTES % (AUTO) 9.4 % (1.7-9.3); NEUTROPHILS # (AUTO) 2.2 K/uL (1.8-7.7); NEUTROPHILS % (AUTO) 38.6 % (42.2-75.2); PLATELET COUNT (AUTO) 218 K/uL (140-450); RED BLOOD CELL COUNT(AUTO) 4.01 MIL/uL (4.20-5.40); RED CELL DISTRIBUTION WIDTH 13.8 % (11.6-13.7); WHITE BLOOD COUNT (AUTO) 5.7 K/uL (4.8-10.8)
[2024-06-14 15:57] LABS: ANION GAP 13.6 (8-16); CALCIUM 9.2 mg/dL (8.5-10.1); CARBON DIOXIDE 29.4 mmol/L (21-32); CHLORIDE 101 mmol/L (98-107); CREATININE 1.1 mg/dL (0.6-1.3); GLUCOSE 123 mg/dL (74-106); SODIUM SERUM 140 mmol/L (136-145); UREA NITROGEN, BLOOD 15 mg/dL (7-18)
[2024-06-14 16:01] LABS: ALBUMIN 4.3 g/dL (3.4-5.0); BILIRUBIN,DIRECT 0.1 mg/dL (0.0-0.3); TOTAL BILIRUBIN 0.2 mg/dL (0.0-1.0); TOTAL PROTEIN, SERUM 7.9 g/dL (6.4-8.2)
--- NOTE | 2024-06-14 16:35 | NUR ---
Patient discharged with v/s stable. Written and verbal after care instructions given FOR CONSTIPATION Patient verbalized understanding. Ambulatory with steady gait. All questions addressed prior to discharge. Advised to follow up with PMD.
== END 2024-06-14 16:35 | disposition home or self-care (01) ==
LOC: MED 13:19
DX: R14.0 Abdominal distension (gaseous) (principal); K59.00 Constipation, unspecified; E11.9 Type 2 diabetes mellitus without complications; I10 Essential (primary) hypertension; Z86.73 Personal history of transient ischemic attack (TIA), and cerebral infarction without residual deficits; Z79.899 Other long term (current) drug therapy; Z88.0 Allergy status to penicillin; Z88.8 Allergy status to other drugs, medicaments and biological substances
CPT/HCPCS: 36415; 80048; 80076; 82948; 83690; 85025; 99284